=== PATIENT | female | born 2000 | race Two or more races ===

== ENCOUNTER 2023-11-22 20:15 | Emergency (ER) | payer OTHER ==
[~2023-11-22] VITALS: Ht 144.8 cm; Wt 56.7 kg
[2023-11-22] MEDS ORDERED: BUTALB/ACETAMINOPHEN/CAFFEINE 1 TAB TABLET PO ONE (22:00)
[2023-11-22 22:25] LABS: HEMATOCRIT 37.4 % (36.0-45.00); HEMOGLOBIN 12.4 g/dL (12.0-15.00); MEAN CELL VOLUME 82.8 fL (80.00-100.00); MEAN CORPUSCULAR HEMOGLOBIN 27.4 pg (27.00-32.0); MEAN CORPUSCULAR HGB CONC 33.1 g/dl (32.0-36.0); PLATELET COUNT 201 K/uL (150-450); RED BLOOD COUNT 4.51 M/uL (4.00-6.00)
[2023-11-22 22:48] LABS: CALCIUM 9.1 mg/dL (8.5-10.1); CREATININE SERUM 0.59 mg/dL (0.55-1.02); GFR 125.22; POTASSIUM 3.97 mEq/L (3.5-5.1)
== END 2023-11-22 23:41 | disposition home or self-care (01) ==
LOC: ER 20:16
PROVIDERS: Emergency Medicine
DX: J32.9 Chronic sinusitis, unspecified (principal); B34.9 Viral infection, unspecified; Z20.822 Contact with and (suspected) exposure to COVID-19